=== PATIENT | male | born 1990 | race African-American/Black ===

== ENCOUNTER 2024-05-17 16:54 | Emergency (ER) | payer SELFPAY ==
[2024-05-17] MEDS ORDERED: dexAMETHasone 10 MG/ML VIAL ONE (17:39)
[2024-05-17] MEDS ORDERED: KETOROLAC 30 MG/ML INJ ONE (17:39)
[2024-05-17] MEDS ORDERED: HYDROCODONE/APAP 5/325 MG TAB ONE (17:40)
--- NOTE | 2024-05-17 17:55 | RAD REPORT ---
EXAM DESCRIPTION: US - Extremity Venous Uni Ltd - 05/17/2024 5:48 pm CLINICAL HISTORY: Swelling COMPARISON: None. TECHNIQUE: Real-time sonographic evaluation of the left lower extremity deep venous system was perfo rmed. FINDINGS: Normal compressibility, flow augmentation, phasic flow and spontaneous flow is identified in the left lower extremity deep venous system. No intraluminal filling defects seen. IMPRESSION: No DVT in the left lower extremity.
--- NOTE | 2024-05-17 17:59 | RAD REPORT ---
EXAM DESCRIPTION: RAD - Knee Left 3 View - 05/17/2024 5:51 pm CLINICAL HISTORY: PAIN COMPARISON: <Comparisons> FINDINGS/IMPRESSION: No acute fracture. Small knee effusion. Soft tissue prominence along the ventra l aspect of the knee. No significant focal degenerative changes.
--- NOTE | 2024-05-17 19:17 | ER ---
Nurse's Notes [facility] Name: David Feliz Age: 34 yrs Sex: Male : 1990 Arrival Date: 05/17/2024 Time: 16:54 Bed 9 Private MD: Diagnosis: Pain in left knee Presentation: 05/17 17:15 Chief complaint: Patient states: Left knee swelling, cannot bend knee. Onset 3 days nj1 ago. Denies recent injury, had surgery in 2009. Coronavirus screen: Vaccine status: Patient reports receiving the 1st dose of the Covid vaccine. Ebola Screen: Patient denies travel to an Ebola-affected area in the 21 days before illness onset. Initial Sepsis Screen: Does the patient meet any 2 criteria? HR > 90 bpm. No. Patient's initial sepsis screen is negative. Does the patient have a suspected source of infection? No. Patient's initial sepsis screen is negative. Risk Assessment: Do you want to hurt yourself or someone else? Patient reports no desire to harm self or others. Onset of symptoms was May 14, 2024. 17:15 Method Of Arrival: Ambulatory [facility] 17:15 Acuity: BRIANNA 3 nj1 Historical: - Allergies: 17:20 No Known Allergies; nj1 - PMHx: 17:20 None; nj1 - PSHx: 17:20 Operative procedure on knee; Operative procedure on knee; nj1 - Immunization history:: Client reports receiving the 1st dose of the Covid vaccine. - Infectious Disease History:: Denies. - Social history:: Smoking status: Patient denies any tobacco usage or history of. Screenin:10 [facility] ED Fall Risk Assessment (Adult) History of falling in the last 3 months, kj2 including since admission No falls in past 3 months (0 pts) Confusion or Disorientation No (0 pts) Intoxicated or Sedated No (0 pts) Impaired Gait No (0 pts) Mobility Assist Device Used No (0 pt) Altered Elimination No (0 pt) Score/Fall Risk Level 0 - 2 = Low Risk Maintained a safe environment, Educated pt \T\ family on fall prevention, incl call for assistance when getting out of bed, Hourly rounding (assess needs \T\ fall precautionary measures) done. Abuse screen: Denies threats or abuse. Denies injuries from another. Nutritional screening: No deficits noted. Tuberculosis screening: No symptoms or risk factors identified. Assessment: 17:42 General: Appears in no apparent distress. uncomfortable, Behavior is calm, cooperative. kj2 18:09 Pain: Complains of pain in left knee Pain currently is 7 out of 10 on a pain scale. kj2 Neuro: Level of Consciousness is awake, alert, obeys commands, Oriented to person, place, time, situation. Cardiovascular: Patient's skin is warm and dry. Respiratory: Airway is patent Respiratory effort is unlabored. GI: No deficits noted. : No deficits noted. 18:53 Reassessment: Patient and/or family updated on plan of care and expected duration. Pain kj2 level reassessed. Patient is alert, oriented x 3, equal unlabored respirations, skin warm/dry/pink. Patient states feeling better. Patient states symptoms have improved. 19:15 Reassessment: Patient and/or family updated on plan of care and expected duration. Pain rg5 level reassessed. Patient is alert, oriented x 3, equal unlabored respirations, skin warm/dry/pink. Vital Signs: 17:15 BP 130 / 82; Pulse 103; Resp 18; Temp 98.6; Pulse Ox 96% on R/A; Weight 129.27 kg; nj1 Height 6 ft. 3 in. ; Pain 7/10; 18:08 BP 130 / 83; Pulse 83; Resp 20; Temp 98.5; Pulse Ox 99% on R/A; kj2 19:10 BP 117 / 78; Pulse 80; Resp 17; Temp 98; Pulse Ox 100% on R/A; Pain 2/10; rg5 17:15 Body Mass Index 35.62 (129.27 kg, 190.5 cm) nj1 17:15 Pain Scale: Adult nj1 19:10 Pain Scale: Adult rg5 ED Course: 16:57 Patient arrived in ED. ra3 16:58 [facility] Mc[facility]il [facility]-C [facility] kb 16:58 Norris Ayala MD is Attending Physician. kb 17:20 Triage completed. nj1 17:21 Arm band placed on left wrist. nj1 17:35 Ingrid Johnson, RN is Primary Nurse. kj2 17:50 US Extremity Venous Unilateral Ltd In Process Unspecified. EDMS 17:52 Knee Left 3 View XRAY In Process Unspecified. EDMS 18:11 Patient has correct armband on for positive identification. Bed in low position. Call kj2 light in reach. Adult w/ patient. Provided Education on: call light, fall precautions. 18:11 No provider procedures requiring assistance completed. kj2 19:25 Patient did not have IV access during this emergency room visit. rg5 Administered Medications: 18:08 Drug: Dexamethasone IM 10 mg IM once Route: IM; Site: right deltoid; kj2 18:48 Follow up: Response: No adverse reaction; Pain is decreased kj2 18:08 Drug: Ketorolac IM 30 mg IM once Route: IM; Site: left deltoid; kj2 18:48 Follow up: Response: No adverse reaction; Pain is decreased kj2 18:08 Drug: HYDROcodone-acetaminophen PO 5 mg-325 mg 1 tabs PO once Route: PO; kj2 18:48 Follow up: Response: No adverse reaction; Pain is decreased kj2 Medication: 18:11 VIS not applicable for this client. kj2 Outcome: 19:16 Discharge ordered by . willis 19:25 Discharged to home ambulatory, rg5 19:25 Condition: stable 19:25 Discharge instructions given to patient, Instructed on discharge instructions, follow up and referral plans. Demonstrated understanding of instructions, follow-up care, medications, Prescriptions given X 2, 19:26 Patient left the ED. rg5 Signatures: Dispatcher [employer] EDMS Sarah Mcneil, ZIPPER REPAIRER-C ZIPPER REPAIRER-CkGuillermina Sauceda, RN RN nj1 Susannha Luna ra3 Noe Adam RN RN rg5 Ingrid Johnson, VIN RN kj2 Corrections: (The following items were deleted from the chart) 17:21 17:20 Immunization history: Client reports receiving the 2nd dose of the Covid vaccine, nj1 nj1
--- NOTE | 2024-05-17 19:17 | EDPHYS ---
Physician Documentation [facility] Name: David Feliz Age: 34 yrs Sex: Male : 1990 Arrival Date: 05/17/2024 Time: 16:54 Bed 9 Private MD: ED Physician Norris Ayala HPI: 05/17 18:01 This 34 yrs old Male presents to ER via Ambulatory with complaints of knee swelling. kb 18:01 Pt is a 34 year old male who presents for pain and swelling to anterior aspect of left kb knee that started 4 days ago. States he has had this happen a few times in the past (about once per year) and has been treated with steroids and antiinflammatories which relieve symptoms. states he had some torn cartilage in the past with surgical repair and this feels similar. Denies injury or trauma. States the top of his knee feels tight so it limits movement of knee. Denies any pain in joint or to posterior knee. . Historical: - Allergies: 17:20 No Known Allergies; nj1 - PMHx: 17:20 None; nj1 - PSHx: 17:20 Operative procedure on knee; Operative procedure on knee; nj1 - Immunization history:: Client reports receiving the 1st dose of the Covid vaccine. - Infectious Disease History:: Denies. - Social history:: Smoking status: Patient denies any tobacco usage or history of. ROS: 18:01 Constitutional: As per HPI kb Exam: 18:01 Constitutional: This is a well developed, well nourished patient who is awake, alert, kb and in no acute distress. Head/Face: Normocephalic, atraumatic. ENT: Moist Mucous membranes Cardiovascular: Regular rate Respiratory: Respirations even and unlabored. No increased work of breathing. Talking in full sentences Abdomen/GI: Soft, non-tender. No distention Skin: Warm, dry with normal turgor. Normal color. Neuro: Awake and alert, GCS 15, oriented to person, place, time, and situation. Moves all extremities. Normal gait. 18:01 Musculoskeletal/extremity: Extremities: grossly normal except: noted in the left knee: pain, swelling, tenderness, ROM: limited active range of motion, Circulation is intact in all extremities. Sensation intact. Weight bearing: able to fully bear weight, Vital Signs: 17:15 BP 130 / 82; Pulse 103; Resp 18; Temp 98.6; Pulse Ox 96% on R/A; Weight 129.27 kg; nj1 Height 6 ft. 3 in. ; Pain 7/10; 18:08 BP 130 / 83; Pulse 83; Resp 20; Temp 98.5; Pulse Ox 99% on R/A; kj2 19:10 BP 117 / 78; Pulse 80; Resp 17; Temp 98; Pulse Ox 100% on R/A; Pain 2/10; rg5 17:15 Body Mass Index 35.62 (129.27 kg, 190.5 cm) nj1 17:15 Pain Scale: Adult nj1 19:10 Pain Scale: Adult rg5 MDM: 16:58 Patient medically screened. kb 18:04 Differential diagnosis: strain, sprain, dvt, cellulitis. Data reviewed: vital signs, kb nurses notes. Historians other than the Patient: Spouse/Significant Other: . Counseling: I had a detailed discussion with the patient and/or guardian regarding the historical points, exam findings, and any diagnostic results supporting the discharge/admit diagnosis, radiology results, the need for outpatient follow up, a orthopedic surgeon, to return to the emergency department if symptoms worsen or persist or if there are any questions or concerns that arise at home. 05/17 17:19 Order name: Knee Left 3 View XRAY; Complete Time: 18:01 kb 05/17 17:19 Order name: US Extremity Venous Unilateral Ltd; Complete Time: 17:57 kb Administered Medications: 18:08 Drug: Dexamethasone IM 10 mg IM once Route: IM; Site: right deltoid; kj2 18:48 Follow up: Response: No adverse reaction; Pain is decreased kj2 18:08 Drug: Ketorolac IM 30 mg IM once Route: IM; Site: left deltoid; kj2 18:48 Follow up: Response: No adverse reaction; Pain is decreased kj2 18:08 Drug: HYDROcodone-acetaminophen PO 5 mg-325 mg 1 tabs PO once Route: PO; kj2 18:48 Follow up: Response: No adverse reaction; Pain is decreased kj2 Disposition: 05/18 08:41 Co-signature as Attending Physician, Norris Ayala MD I reviewed the patient's care rn provided by the Advanced Practice Provider and agree with the diagnosis and treatment plan. Disposition Summary: 05/17/24 19:16 Discharge Ordered Notes: Location: Home kb Condition: Stable kb Diagnosis - Pain in left knee kb Followup: kb - With: Emergency Department - When: As needed - Reason: Worsening of condition Followup: kb - With: Private Physician - When: 2 - 3 days - Reason: Recheck today's complaints, Continuance of care, Re-evaluation by your physician Discharge Instructions: - Discharge Summary Sheet kb - Acute Knee Pain, Adult, [id number] kb Forms: - Medication Reconciliation Form kb - Antibiotic Education kb - Prescription Opioid Use kb - Patient Portal Instructions kb - Leadership Thank You Letter kb Prescriptions: - Diclofenac Sodium 75 mg Oral tablet, delayed release (enteric coated) - take 1 tablet ORAL route 2 times per day As needed; 30 tablet; Refills: 0, kb Product Selection Permitted - orphenadrine citrate 100 mg Oral Tablet Sustained Release - take 1 tablet ORAL route 2 times per day As needed; 20 tablet; Refills: 0, kb Product Selection Permitted Signatures: Dispatcher [employer] EDMS Sarah Mcneil, SOCIAL SERVICE LIAISON-C SOCIAL SERVICE LIAISON-Ckb Norris Ayala MD MD rn Jaco, Norma RN RN nj1 Ingrid Johnson, RN RN kj2 Corrections: (The following items were deleted from the chart) 05/17 17:19 17:19 Knee Left 3 View+RAD.RAD.BRZ ordered. EDMS EDMS 17:19 17:19 Extremity Venous Uni Ltd+US.RAD.BRZ ordered. EDMS EDMS 17:21 17:20 Immunization history: Client reports receiving the 2nd dose of the Covid vaccine, nj1 nj1
[2024-05-17 19:42] VITALS: BP 117/78; TEMP 98; O2SAT 100
== END 2024-05-17 19:26 | disposition home or self-care (01) ==
LOC: ER 16:54
DX: M25.562 Pain in left knee (principal)
CPT/HCPCS: 93971; 96372; 99284; J1100